=== PATIENT | male | born 1965 | race Caucasian/White ===

== ENCOUNTER → 2018-04-20 | Day surgery (SDC) | payer OTHER ==
[~2018-04-20] VITALS: Ht 177.8 cm; Wt 80.3 kg
[~2018-04-20] MED LIST: *RESP: ALBUTEROL 2.5 MG/3 ML NEB (PRN) PERIprocedural Use ONLY NEB ONE; *morphine SULFATE 4 MG/ML PERIprocedure ONLY ONE; ACETAMINOPHEN 1000 MG/100 ML 100 ML IV SCH; BUPIVACAINE/EPINEPHRINE 0.5% PF 30 ML VIAL ONE; CHLORHEXIDINE GLUCONATE 2 % 1 PACK (2 CLOTHS) TOPICAL PRN; DO NOT ADM ANY ANTICOAGULANT DRUGS PRN; GLYCOPYRROLATE 1 MG/5 ML SYRINGE IV PUSH ONE; KETOROLAC TROMETHAMINE 30 MG/ML (IVP) VIAL IV PUSH ONE; LACTATED RINGER'S 1000 ML IV PRN; LIDOCAINE HCL 1% PF 5 ML SYRINGE OTHER ONE; METOPROLOL TARTRATE 25 MG TAB PO PRN; MIDAZOLAM HCL 2 MG/2 ML VIAL ONE; MORPHINE SULFATE 4 MG/ML INJ IV PUSH PRN; MULTTAB4 PO; NEOSTIGMINE 5 MG/5 ML SYRINGE IV PUSH ONE; ONDANSETRON HCL 4 MG/2 ML VIAL IV ONE; ONDANSETRON ODT 4 MG TAB PO PRN; POVIDONE IODINE 5% (ANTISEPSIS KIT) 4 APPLICATIONS EACH NARE PRN; PROPOFOL 200 MG/20 ML AMP IV ONE; ROCURONIUM INJ 50 MG/5 ML SYRINGE IV PUSH ONE; SODIUM CHLORID 0.9% 500 ML IV PRN; SODIUM CHLORIDE 0.9% FLUSH 10 ML FLUSH IV FLUSH PRN; SODIUM CHLORIDE 0.9% FLUSH 10 ML FLUSH IV FLUSH SCH; SUGAMMADEX SODIUM 200 MG/2 ML VIAL IV PUSH ONE; VANCOMYCIN 1250 MG/NS 250 ML (for 70-84 kg) IV SCH; oxyCODONE/ACETAMINOPHEN 5 MG/325 MG TAB PO PRN
--- NOTE | 2018-04-20 10:09 | PD.OP ---
cc: Supa Bustamante MD; Claudette Kovacs MD Operative Report Date of Surgery: Apr 20, 2018 Preoperative Diagnosis: (1) Right inguinal hernia (2) Recurrent left inguinal hernia (3) Umbilical hernia Postoperative Diagnosis: (1) Recurrent left inguinal hernia (2) Right inguinal hernia (3) Umbilical hernia Procedure: Open primary umbilical hernia repair Laparoscopic totally extraperitoneal repair of right inguinal hernia and recurrent left inguinal hernia with mesh Anesthesia: General Surgeon: Supa Bustamante Plans Examiner(s): Kim RASHID Operation and Findings: Complications: None apparent Estimated blood loss: 10 cc Operative findings: Indirect left inguinal hernia which was recurrent and diffuse sutures present from previous repair. Large indirect right inguinal hernia. Difficult to characterize hernia medially overlying pubis seen from right inguinal area. Procedure in detail: The patient was taken to the operating room and placed in the supine position. General endotracheal anesthesia was induced. The abdomen was prepped and draped in usual sterile fashion and a surgical timeout performed to verify correct patient procedure and site. A curvilinear incision was made inferior to the umbilicus after infiltration of local anesthetic. Dissection carried down to the underlying fascia and the anterior fascia to the left of midline was incised vertically. The retrorectus space was developed and the dissecting balloon placed down towards the pubis. The extraperitoneal space was developed by insufflating the balloon. This trocar was then removed and the structural balloon was placed. The extraperitoneal space was insufflated to 11 mmHg with CO2 gas which the patient tolerated well. Next two 5 mm ports were placed in the lower midline. Attention was turned to the left inguinal area. Lateral dissection was carried out. Medially Viktor's ligament was identified. The spermatic cord was evaluated and an indirect hernia was encountered. It was fairly large with a thin sac. There were 2 or 3 sutures which appeared to be Ethibond present from repair previously. The indirect hernia was reduced and the peritoneum dissected cephalad. No evidence of direct hernia. Ultrapro advanced mesh was cut to 11 x 14 cm size and was placed in the left inguinal area. It was attached at Viktor's ligament and superior laterally as well as of the rectus anteriorly with secure strap tacker. There was complete coverage of the entire inguinal floor including the indirect and direct spaces. Attention was then turned to the right inguinal area. Dissection was carried out laterally and medially Viktor's ligament was identified. Interestingly, not in the direct space but medially above the pubis there was a hernia with a pseudo-sac and fatty contents present. This was reduced. This was traveling anterior to the rectus insertion. A fairly large indirect defect was encountered. This was reduced and from spermatic cord structures. There were some holes in the peritoneum which were closed with the clip member of technical staff. A mesh was cut to 12 x 15 cm size for the right inguinal floor. This was secured medially across the midline to the insertion of the rectus muscles at the pubis. It was then secured in the lower rectus muscle as well. This was to cover the suprapubic defect. Laterally this was secured in the superior lateral position and also lateral to the epigastric vessels. There is complete coverage of the right inguinal area. The extraperitoneal spaces and allowed to desufflate and trochars were removed. The anterior fascia was closed with running 0 Vicryl suture. Attention was turned to repair of the umbilical hernia. The umbilical skin was from the underlying hernia sac. The hernia sac was entered and fat was reduced into the abdominal cavity. The defect was about 10-15 mm. This was closed transversely with simple interrupted 0 Ethibond suture. The skin of the umbilicus secured to the underlying tissue with 3-0 Vicryl sutures. Skin closed with 4-0 Monocryl subcuticular as well as steristrips. Pressure dressing placed at umbilicus. The patient tolerated the procedure well and was extubated and taken to PACU in stable condition. Supa Bustamante MD Apr 20, 2018 10:09
[2018-04-20 13:00] VITALS: BP 111/63; PULSE 89; RESP 18; TEMP 98.8; O2SAT 95
== END | disposition home or self-care (01) ==
LOC: HSDC 06:07
PROVIDERS: ATTEND Surgery
DX: K40.90 Unilateral inguinal hernia, without obstruction or gangrene, not specified as recurrent (principal); K40.91 Unilateral inguinal hernia, without obstruction or gangrene, recurrent; K42.9 Umbilical hernia without obstruction or gangrene; J30.9 Allergic rhinitis, unspecified; E78.1 Pure hyperglyceridemia; E73.9 Lactose intolerance, unspecified; E78.6 Lipoprotein deficiency; I34.1 Nonrheumatic mitral (valve) prolapse; E55.9 Vitamin D deficiency, unspecified
CPT/HCPCS: 00840; 49585; 49650; 49651; 94664; C1727; C1781; J1885; J2250; J2270; J2405; J2710; J3010; J7120; J7613